=== PATIENT | male | born 2000 | race Asian ===

== ENCOUNTER 2020-06-08 22:15 | Emergency (ER) | payer SELFPAY ==
[~2020-06-08] VITALS: Ht 167.6 cm; Wt 69.0 kg
[2020-06-08 22:55] VITALS: BP 135/62
== END 2020-06-08 23:00 | disposition home or self-care (01) ==
LOC: ER 22:15
DX: F10.129 Alcohol abuse with intoxication, unspecified (principal); Y90.9 Presence of alcohol in blood, level not specified
CPT/HCPCS: 99283